=== PATIENT | female | born 1930 | race Two or more races ===

== ENCOUNTER 2017-03-01 09:43 | Inpatient (IN) | payer MEDICARE, MEDICAID ==
[~2017-03-01] VITALS: Ht 152.4 cm; Wt 50.9 kg
[2017-03-01] MEDS ORDERED: normal saline 1000ML IV soln IVB ONE (09:55)
[2017-03-01 10:35] LABS: BASOPHILS % (AUTO) 0.3 % (0-1); EOSINOPHILS # (AUTO) 0.1 X10'3 (0-0.9); EOSINOPHILS % (AUTO) 0.6 % (0-6); HEMOGLOBIN 12.9 g/dl (12.0-16.0); LYMPHOCYTES # (AUTO) 1.5 X10'3 (1.1-4.8); LYMPHOCYTES % (AUTO) 16.5 % (21-51); MEAN CORPUSCULAR HEMOGLOBIN 26.3 PG (27.0-31.0); MEAN CORPUSCULAR HGB CONC 33.2 % (33.0-36.5); MEAN CORPUSCULAR VOLUME 79.3 FL (78-98); MEAN PLATELET VOLUME 9.1 FL (7.4-10.4); MONOCYTES # (AUTO) 1.3 X10'3 (0-0.9); MONOCYTES % (AUTO) 13.6 % (2-12); NEUTROPHILS # (AUTO) 6.5 X10'3 (1.8-7.7); PLATELET COUNT 218 X10'3 (140-440); RED BLOOD COUNT 4.92 X10'6 (4.20-5.60); RED CELL DISTRIBUTION WIDTH 17.2 % (11.5-14.5); WHITE BLOOD COUNT 9.4 X10'3 (4.5-11.0)
[2017-03-01 10:46] LABS: PROTHROMBIN TIME 10.8 SECONDS (9.0-12.0)
[2017-03-01 11:06] LABS: ALANINE AMINOTRANSFERASE 17 U/L (12-78); ALBUMIN 3.2 G/DL (3.4-5.0); ALKALINE PHOSPHATASE 61 IU/L (46-116); ANION GAP 7 (8-16); ASPARTATE AMINO TRANSFERASE 23 U/L (10-37); BILIRUBIN,TOTAL 0.4 MG/DL (0.1-1.0); BLOOD UREA NITROGEN 15 MG/DL (7-18); BUN/CREATININE RATIO 10.7 (6.6-38.0); CALCIUM 9.5 MG/DL (8.5-10.1); CHLORIDE 103 MMOL/L (99-107); GLUCOSE 146 MG/DL (70-104); LIPASE 142 U/L (73-393); POTASSIUM 3.9 MMOL/L (3.5-5.1); SODIUM 137 MMOL/L (135-145); TOTAL CARBON DIOXIDE 26.7 MMOL/L (24-32); TOTAL PROTEIN 6.5 G/DL (6.4-8.2); eGFR 35 ML/MIN
[2017-03-01 11:28] LABS: CLARITY,URINE SLIGHTLY CLOUDY (Clear); COLOR,URINE YELLOW (Yellow); GLUCOSE, URINE 100 mg/dl (Neg); KETONES,URINE NEGATIVE (Neg); LEUKOCYTE ESTERASE ,URINE MODERATE (Neg); NITRITES, URINE POSITIVE (Neg); OCCULT BLOOD,URINE MODERATE (Neg); PH,URINE 5.5 (4.8-8.0); PROTEIN,URINE TRACE mg/dl (Neg); UROBILINOGEN,URINE 0.2 E.U/dL (0.2-1.0)
[2017-03-01 11:33] LABS: UA COLLECTION TYPE STRAIGHT CATH
[2017-03-01 11:35] LABS: BACTERIA,URINE 4+ /HPF (Neg); MUCUS STRANDS NONE SEEN /LPF (Neg); RBC,URINE 0-2 /HPF (0-2); SQUAMOUS EPITHELIAL CELL,UR NONE SEEN /LPF (FEW); WBC CLUMPS,URINE FEW /HPF (NEGATIVE); WBC,URINE 30-50 /HPF (0-4)
[2017-03-01] MEDS ORDERED: aspirin 81mg tab.chew PO ONE (11:35)
[2017-03-01] MEDS ORDERED: levoFLOXACIN-Levaquin 500mg/D5 100 ML IV ONE (11:50)
[2017-03-01] MEDS ORDERED: TEMA15CA PO (12:41)
[2017-03-01] MEDS ORDERED: LOSA100T28 PO (12:42)
[2017-03-01] MEDS ORDERED: LEVO25TA2 PO (12:43)
[2017-03-01] MEDS ORDERED: PRED10TA23 PO (12:43)
[2017-03-01] MEDS ORDERED: METF500T PO (12:44)
[2017-03-01] MEDS ORDERED: oseltamivir phos 75mg capsule PO ONE (13:15)
[2017-03-01] MEDS ORDERED: acetaminophen 325mg tablet PO PRN (13:30)
[2017-03-01] MEDS ORDERED: mag hydrox/Alum hydrox/simeth 30ml oral suspension PO PRN (13:30)
[2017-03-01] MEDS ORDERED: potassium Cl 20 mEq SR tablet PO PRN ×2 (13:30)
[2017-03-01] MEDS ORDERED: magnesium 2GM in 50ml NS 50 ML IV PRN (13:30)
[2017-03-01] MEDS ORDERED: magnesium 4gm in 100ml NS 100 ML IV PRN (13:30)
[2017-03-01] MEDS ORDERED: magnesium Cl slow-release 64mg tablet PO PRN (13:30)
[2017-03-01] MEDS ORDERED: bisacodyl 10mg suppository rectal RC PRN (13:30)
[2017-03-01] MEDS ORDERED: ondansetron/PF 4mg/2ml inj IV PRN (13:30)
[2017-03-01] MEDS ORDERED: magnesium hydroxide 30ml (MOM) UD suspension PO PRN (13:30)
[2017-03-01] MEDS ORDERED: potassium Cl 40MEQ/NS 500ml 500 ML IV PRN ×2 (13:30)
[2017-03-01] MEDS ORDERED: MESSAGE TO PHARMACY PO ONE (13:35)
[2017-03-01] MEDS ORDERED: dextrose 50%-water 50ml dispensing syringe IV PRN ×2 (13:35)
[2017-03-01] MEDS ORDERED: glucagon, human recombinant 1mg kit SUBCUT PRN (13:35)
[2017-03-01] MEDS ORDERED: nitroGLYCERIN 0.4mg SUBLingual tab SL PRN (13:35)
[2017-03-01] MEDS ORDERED: dextrose ORAL solution 15 GM/59 ML bottle PO PRN ×2 (13:35)
[2017-03-01] MEDS: cefTRIAXone 1g/NS 100ml IVPB 100 ML IV SCH (13:46)
[2017-03-01 13:57] LABS: HEMOGLOBIN A1C 6.6 % (4.5-6.2)
[2017-03-01] MEDS: potassium cl 20mEq in 1/2 NS 1,000 ML IV SCH (14:53)
[2017-03-01 17:20] VITALS: BP 127/75
[2017-03-01 19:00] VITALS: BP 150/83
[2017-03-01] MEDS: Insulin Detemir pen SQ SCH (21:00)
[2017-03-01] MEDS: guaiFENesin 200 MG/10 ML oral syrup UD cup PO PRN (21:15)
[2017-03-01] MEDS: docusate sod 100mg capsule PO SCH (21:51)
[2017-03-01] MEDS: oseltamivir 30mg capsule PO SCH (21:51)
[2017-03-01] MEDS: metoprolol tartrate 12.5mg (1/2 tablet) PO SCH (21:51)
[2017-03-01] MEDS: temazepam 15mg capsule PO SCH (21:51)
[2017-03-01] MEDS: albuterol 2.5 MG/3 ML nebule NEB PRN (22:04)
[2017-03-01 23:30] VITALS: BP 111/56
[2017-03-02] MEDS: potassium cl 20mEq in 1/2 NS 1,000 ML IV SCH ×3 (02:43→17:03)
[2017-03-02 04:00] VITALS: BP 106/57
[2017-03-02 05:11] LABS: BASOPHILS % (AUTO) 0.1 % (0-1); EOSINOPHILS # (AUTO) 0.1 X10'3 (0-0.9); EOSINOPHILS % (AUTO) 1.5 % (0-6); HEMATOCRIT 33.1 % (35.0-45.0); LYMPHOCYTES # (AUTO) 1.4 X10'3 (1.1-4.8); LYMPHOCYTES % (AUTO) 24.9 % (21-51); MEAN CORPUSCULAR HEMOGLOBIN 26.2 PG (27.0-31.0); MEAN CORPUSCULAR HGB CONC 33.3 % (33.0-36.5); MEAN CORPUSCULAR VOLUME 78.7 FL (78-98); MONOCYTES % (AUTO) 17.7 % (2-12); NEUTROPHILS # (AUTO) 3.1 X10'3 (1.8-7.7); NEUTROPHILS % (AUTO) 55.8 % (42-75); PLATELET COUNT 126 X10'3 (140-440); WHITE BLOOD COUNT 5.5 X10'3 (4.5-11.0)
[2017-03-02 05:47] LABS: ALBUMIN 2.3 G/DL (3.4-5.0); ANION GAP 8 (8-16); BLOOD UREA NITROGEN 14 MG/DL (7-18); BUN/CREATININE RATIO 8.7 (6.6-38.0); CALCIUM 7.9 MG/DL (8.5-10.1); CHLORIDE 107 MMOL/L (99-107); CREATININE 1.61 MG/DL (0.40-0.90); GLUCOSE 98 MG/DL (70-104); MAGNESIUM 1.5 MG/DL (1.5-2.4); POTASSIUM 4.4 MMOL/L (3.5-5.1); SODIUM 140 MMOL/L (135-145); TOTAL CARBON DIOXIDE 24.8 MMOL/L (24-32); eGFR 30 ML/MIN
[2017-03-02 07:13] VITALS: BP 136/65
[2017-03-02] MEDS: K and/or MAG REPLACEMENT MC SCH (08:00)
[2017-03-02] MEDS: metoprolol tartrate 12.5mg (1/2 tablet) PO SCH ×2 (08:00→21:48)
[2017-03-02] MEDS ORDERED: non-formulary drug (Losartan Potassium 1 TAB) PO SCH (08:00)
[2017-03-02] MEDS ORDERED: enoxaparin 40mg/0.4ml syringe SUBCUT SCH (08:00)
[2017-03-02] MEDS ORDERED: PREDNISONE PO SCH (08:00)
[2017-03-02] MEDS: cefTRIAXone 1g/NS 100ml IVPB 100 ML IV SCH (08:10)
[2017-03-02] MEDS: aspirin 81mg tablet.DR PO SCH (08:12)
[2017-03-02] MEDS: docusate sod 100mg capsule PO SCH ×2 (08:12→21:48)
[2017-03-02] MEDS: losartan 50mg tablet PO SCH (08:12)
[2017-03-02] MEDS: oseltamivir 30mg capsule PO SCH ×2 (08:13→21:48)
[2017-03-02] MEDS: levoTHYROXINE 25mcg tablet PO SCH (08:13)
[2017-03-02] MEDS: prednisone 10mg tablet PO SCH (08:13)
[2017-03-02] MEDS: albuterol 2.5 MG/3 ML nebule NEB PRN ×2 (09:06→20:58)
[2017-03-02 11:43] VITALS: BP 135/76
[2017-03-02] MEDS: NUT.TX.GLUC.INTOLER,LAC-FR,REG (BOOST GLUCOSE CONTROL) 237 ML PO SCH (18:00)
[2017-03-02 19:00] VITALS: BP 174/87
[2017-03-02] MEDS: guaiFENesin 200 MG/10 ML oral syrup UD cup PO PRN (21:49)
[2017-03-02] MEDS: Insulin Detemir pen SQ SCH (22:05)
[2017-03-02] MEDS: temazepam 15mg capsule PO SCH (23:16)
[2017-03-02 23:30] VITALS: BP 149/86
[2017-03-03 05:18] LABS: BASOPHILS % (AUTO) 0.8 % (0-1); EOSINOPHILS # (AUTO) 0.1 X10'3 (0-0.9); EOSINOPHILS % (AUTO) 1.6 % (0-6); HEMATOCRIT 33.9 % (35.0-45.0); HEMOGLOBIN 11.4 g/dl (12.0-16.0); LYMPHOCYTES # (AUTO) 1.3 X10'3 (1.1-4.8); LYMPHOCYTES % (AUTO) 30.2 % (21-51); MEAN CORPUSCULAR HEMOGLOBIN 26.2 PG (27.0-31.0); MEAN CORPUSCULAR HGB CONC 33.6 % (33.0-36.5); MONOCYTES # (AUTO) 0.7 X10'3 (0-0.9); MONOCYTES % (AUTO) 17.8 % (2-12); NEUTROPHILS # (AUTO) 2.1 X10'3 (1.8-7.7); NEUTROPHILS % (AUTO) 49.6 % (42-75); PLATELET COUNT 168 X10'3 (140-440); RED BLOOD COUNT 4.34 X10'6 (4.20-5.60); RED CELL DISTRIBUTION WIDTH 17.5 % (11.5-14.5); WHITE BLOOD COUNT 4.2 X10'3 (4.5-11.0)
[2017-03-03 05:37] LABS: ALBUMIN 2.5 G/DL (3.4-5.0); ANION GAP 9 (8-16); BLOOD UREA NITROGEN 12 MG/DL (7-18); BUN/CREATININE RATIO 9.8 (6.6-38.0); CALCIUM 8.2 MG/DL (8.5-10.1); CHLORIDE 110 MMOL/L (99-107); CREATININE 1.22 MG/DL (0.40-0.90); GLUCOSE 103 MG/DL (70-104); MAGNESIUM 1.4 MG/DL (1.5-2.4); POTASSIUM 4.2 MMOL/L (3.5-5.1); SODIUM 143 MMOL/L (135-145); TOTAL CARBON DIOXIDE 24.5 MMOL/L (24-32); eGFR 42 ML/MIN
[2017-03-03 07:47] VITALS: BP 177/77
[2017-03-03] MEDS: K and/or MAG REPLACEMENT MC SCH (08:00)
[2017-03-03] MEDS: cefTRIAXone 1g/NS 100ml IVPB 100 ML IV SCH (08:03)
[2017-03-03] MEDS: docusate sod 100mg capsule PO SCH ×2 (08:04→21:02)
[2017-03-03] MEDS: NUT.TX.GLUC.INTOLER,LAC-FR,REG (BOOST GLUCOSE CONTROL) 237 ML PO SCH ×3 (08:04→18:38)
[2017-03-03] MEDS: losartan 50mg tablet PO SCH (08:05)
[2017-03-03] MEDS: aspirin 81mg tablet.DR PO SCH (08:05)
[2017-03-03] MEDS: metoprolol tartrate 12.5mg (1/2 tablet) PO SCH (08:06)
[2017-03-03] MEDS: levoTHYROXINE 25mcg tablet PO SCH (08:07)
[2017-03-03] MEDS: prednisone 10mg tablet PO SCH (08:07)
[2017-03-03] MEDS: oseltamivir 30mg capsule PO SCH ×2 (08:08→21:02)
[2017-03-03] MEDS: albuterol 2.5 MG/3 ML nebule NEB PRN ×3 (10:10→22:05)
[2017-03-03 11:30] VITALS: BP_SYST 155; BP_SYST 164; BP_DIAS 112; BP_DIAS 91
[2017-03-03] MEDS: potassium cl 20mEq in 1/2 NS 1,000 ML IV SCH ×2 (15:26→21:02)
[2017-03-03] MEDS: insulin Lispro (HumaLOG) vial - multi-dose SQ SCH (19:19)
[2017-03-03 19:20] VITALS: BP 149/68
[2017-03-03] MEDS: Insulin Detemir pen SQ SCH (20:59)
[2017-03-03] MEDS: temazepam 15mg capsule PO SCH (21:02)
[2017-03-03] MEDS: metoprolol tartrate 25mg tablet PO SCH (21:03)
[2017-03-03 23:45] VITALS: BP 121/51
[2017-03-04] MEDS: cephalexin 500mg capsule PO SCH ×4 (00:07→23:50)
[2017-03-04] MEDS: albuterol 2.5 MG/3 ML nebule NEB PRN ×4 (03:28→19:50)
[2017-03-04 05:54] LABS: BASOPHILS % (AUTO) 0.1 % (0-1); EOSINOPHILS # (AUTO) 0.1 X10'3 (0-0.9); EOSINOPHILS % (AUTO) 3.4 % (0-6); HEMATOCRIT 30.4 % (35.0-45.0); HEMOGLOBIN 10.2 g/dl (12.0-16.0); LYMPHOCYTES # (AUTO) 1.8 X10'3 (1.1-4.8); LYMPHOCYTES % (AUTO) 41.4 % (21-51); MEAN CORPUSCULAR HEMOGLOBIN 26.3 PG (27.0-31.0); MEAN CORPUSCULAR HGB CONC 33.6 % (33.0-36.5); MEAN CORPUSCULAR VOLUME 78.1 FL (78-98); MEAN PLATELET VOLUME 9.1 FL (7.4-10.4); MONOCYTES # (AUTO) 0.7 X10'3 (0-0.9); MONOCYTES % (AUTO) 15.2 % (2-12); NEUTROPHILS # (AUTO) 1.8 X10'3 (1.8-7.7); NEUTROPHILS % (AUTO) 39.9 % (42-75); PLATELET COUNT 143 X10'3 (140-440); RED BLOOD COUNT 3.89 X10'6 (4.20-5.60); RED CELL DISTRIBUTION WIDTH 17.5 % (11.5-14.5); WHITE BLOOD COUNT 4.4 X10'3 (4.5-11.0)
[2017-03-04 06:18] LABS: ALBUMIN 2.3 G/DL (3.4-5.0); ANION GAP 7 (8-16); BLOOD UREA NITROGEN 17 MG/DL (7-18); BUN/CREATININE RATIO 14.4 (6.6-38.0); CALCIUM 8.3 MG/DL (8.5-10.1); CHLORIDE 109 MMOL/L (99-107); CREATININE 1.18 MG/DL (0.40-0.90); GLUCOSE 86 MG/DL (70-104); POTASSIUM 4.3 MMOL/L (3.5-5.1); SODIUM 139 MMOL/L (135-145); eGFR 43 ML/MIN
[2017-03-04 06:33] LABS: MAGNESIUM 4.2 MG/DL (1.5-2.4)
[2017-03-04 06:36] LABS: TOTAL CELLS COUNTED 100
[2017-03-04 06:37] LABS: ANISOCYTOSIS 1+; BURR CELLS 2+; ELLIPTOCYTES 1+; PLATELET ESTIMATE NORMAL; SCHISTOCYTES FEW
[2017-03-04 08:00] VITALS: BP 134/59
[2017-03-04] MEDS: NUT.TX.GLUC.INTOLER,LAC-FR,REG (BOOST GLUCOSE CONTROL) 237 ML PO SCH ×3 (08:00→18:00)
[2017-03-04] MEDS: K and/or MAG REPLACEMENT MC SCH (08:00)
[2017-03-04] MEDS: docusate sod 100mg capsule PO SCH ×2 (08:38→21:09)
[2017-03-04] MEDS: prednisone 10mg tablet PO SCH (08:38)
[2017-03-04] MEDS: metoprolol tartrate 25mg tablet PO SCH ×2 (08:38→21:09)
[2017-03-04] MEDS: aspirin 81mg tablet.DR PO SCH (08:38)
[2017-03-04] MEDS: losartan 50mg tablet PO SCH (08:38)
[2017-03-04] MEDS: oseltamivir 30mg capsule PO SCH ×2 (08:38→21:09)
[2017-03-04] MEDS: levoTHYROXINE 25mcg tablet PO SCH (08:38)
[2017-03-04 11:00] VITALS: BP 134/68
[2017-03-04] MEDS: potassium cl 20mEq in 1/2 NS 1,000 ML IV SCH (13:47)
[2017-03-04] MEDS: normal saline 1000ml 1,000 ML IV SCH ×2 (16:31→23:50)
[2017-03-04 18:00] VITALS: BP 155/87
[2017-03-04] MEDS: insulin Lispro (HumaLOG) vial - multi-dose SQ SCH (19:14)
[2017-03-04] MEDS: Insulin Detemir pen SQ SCH (21:00)
[2017-03-04] MEDS: temazepam 15mg capsule PO SCH (21:09)
[2017-03-04] MEDS: guaiFENesin 200 MG/10 ML oral syrup UD cup PO PRN (21:09)
[2017-03-05] MEDS: HYDROcodone/acetaminophen 5mg/325mg tablet PO PRN ×2 (01:04→11:27)
[2017-03-05] MEDS: albuterol 2.5 MG/3 ML nebule NEB PRN ×2 (01:27→07:51)
[2017-03-05 07:11] LABS: BASOPHILS % (AUTO) 0.8 % (0-1); EOSINOPHILS # (AUTO) 0.1 X10'3 (0-0.9); EOSINOPHILS % (AUTO) 2.7 % (0-6); HEMOGLOBIN 10.1 g/dl (12.0-16.0); LYMPHOCYTES # (AUTO) 1.6 X10'3 (1.1-4.8); LYMPHOCYTES % (AUTO) 38.1 % (21-51); MEAN CORPUSCULAR HEMOGLOBIN 26.2 PG (27.0-31.0); MEAN CORPUSCULAR HGB CONC 33.7 % (33.0-36.5); MEAN CORPUSCULAR VOLUME 77.7 FL (78-98); MEAN PLATELET VOLUME 8.9 FL (7.4-10.4); MONOCYTES # (AUTO) 0.7 X10'3 (0-0.9); MONOCYTES % (AUTO) 15.2 % (2-12); NEUTROPHILS # (AUTO) 1.9 X10'3 (1.8-7.7); NEUTROPHILS % (AUTO) 43.2 % (42-75); PLATELET COUNT 159 X10'3 (140-440); RED BLOOD COUNT 3.85 X10'6 (4.20-5.60); RED CELL DISTRIBUTION WIDTH 17.5 % (11.5-14.5); WHITE BLOOD COUNT 4.3 X10'3 (4.5-11.0)
[2017-03-05 07:17] LABS: ALBUMIN 2.3 G/DL (3.4-5.0); ANION GAP 7 (8-16); BLOOD UREA NITROGEN 17 MG/DL (7-18); BUN/CREATININE RATIO 14.8 (6.6-38.0); CALCIUM 7.5 MG/DL (8.5-10.1); CHLORIDE 113 MMOL/L (99-107); CREATININE 1.15 MG/DL (0.40-0.90); GLUCOSE 95 MG/DL (70-104); MAGNESIUM 2.5 MG/DL (1.5-2.4); POTASSIUM 4.1 MMOL/L (3.5-5.1); SODIUM 143 MMOL/L (135-145); TOTAL CARBON DIOXIDE 22.7 MMOL/L (24-32); eGFR 45 ML/MIN
[2017-03-05 08:00] VITALS: BP 127/74
[2017-03-05] MEDS: K and/or MAG REPLACEMENT MC SCH (08:00)
[2017-03-05] MEDS: oseltamivir 30mg capsule PO SCH ×2 (08:32→17:07)
[2017-03-05] MEDS: aspirin 81mg tablet.DR PO SCH (08:33)
[2017-03-05] MEDS: cephalexin 500mg capsule PO SCH ×2 (08:33→17:07)
[2017-03-05] MEDS: metoprolol tartrate 25mg tablet PO SCH (08:33)
[2017-03-05] MEDS: losartan 50mg tablet PO SCH (08:33)
[2017-03-05] MEDS: docusate sod 100mg capsule PO SCH (08:33)
[2017-03-05] MEDS: levoTHYROXINE 25mcg tablet PO SCH (08:33)
[2017-03-05] MEDS: prednisone 10mg tablet PO SCH (08:34)
[2017-03-05] MEDS: NUT.TX.GLUC.INTOLER,LAC-FR,REG (BOOST GLUCOSE CONTROL) 237 ML PO SCH ×2 (08:36→13:07)
[2017-03-05] MEDS: guaiFENesin 200 MG/10 ML oral syrup UD cup PO PRN (08:57)
[2017-03-05] MEDS: insulin Lispro (HumaLOG) vial - multi-dose SQ SCH (08:59)
[2017-03-05 11:00] VITALS: BP 149/80
[2017-03-05] MEDS: normal saline 1000ml 1,000 ML IV SCH (12:14)
[2017-03-05] MEDS ORDERED: CEPH500C5 PO (15:37)
[2017-03-05] MEDS ORDERED: GUAI100L97 PO (15:37)
[2017-03-05] MEDS ORDERED: ALB0.5UD IH (16:05)
[2017-03-05] MEDS ORDERED: IPRA3AMP9 IH (16:12)
[2017-03-06] MEDS ORDERED: LACTOBACILLUS RHAMNOSUS GG 15 billion unit sprinkle caps PO SCH (07:30)
== END 2017-03-05 17:36 | disposition home health service (06) | DRG 872 ==
LOC: ER 09:43 → EDBD 09:43 → ED HOLD 13:26 → EDBEDREQ 16:34 → SUR 3N 17:30
PROVIDERS: ADMIT Internal Medicine; ATTEND Internal Medicine
DX: A41.9 Sepsis, unspecified organism (principal); E44.0 Moderate protein-calorie malnutrition; D69.6 Thrombocytopenia, unspecified; N39.0 Urinary tract infection, site not specified; E83.41 Hypermagnesemia; B96.20 Unspecified Escherichia coli [E. coli] as the cause of diseases classified elsewhere; E03.9 Hypothyroidism, unspecified; E11.9 Type 2 diabetes mellitus without complications; D64.9 Anemia, unspecified; F03.90 Unspecified dementia, unspecified severity, without behavioral disturbance, psychotic disturbance, mood disturbance, and anxiety; N28.9 Disorder of kidney and ureter, unspecified; J10.1 Influenza due to other identified influenza virus with other respiratory manifestations; J45.909 Unspecified asthma, uncomplicated; I10 Essential (primary) hypertension; Z66 Do not resuscitate; Z68.21 Body mass index [BMI] 21.0-21.9, adult
CPT/HCPCS: 36415; 71046; 80048; 80053; 81001; 82948; 83036; 83605; 83690; 83735; 84443; 84484; 85025; 85610; 87040; 87070; 87077; 87088; 87186; 87502; 87503; 93005; 93306; 94640; 94667; 94760; 96361; 96365; 97116; 97162; 97530; 99285; A4353; J0696; J1650; J1956; J3475; J7030; J7512

== ENCOUNTER 2017-03-21 06:51 | Emergency (ER) | payer MEDICARE, MEDICAID ==
[~2017-03-21] VITALS: Ht 162.6 cm; Wt 50.0 kg
[~2017-03-21 06:51] MED LIST: ALB0.5UD IH; CEPH500C5 PO; GUAI100L97 PO; IPRA3AMP9 IH; LEVO25TA2 PO; LOSA100T28 PO; METF500T PO; TEMA15CA PO
[2017-03-21] MEDS ORDERED: dextrose 50%-water 50ml dispensing syringe IV ONE (07:00)
[2017-03-21 10:27] VITALS: BP 173/72
== END 2017-03-21 10:29 | disposition home or self-care (01) ==
LOC: ER 06:53
DX: E11.649 Type 2 diabetes mellitus with hypoglycemia without coma (principal); I10 Essential (primary) hypertension; J45.909 Unspecified asthma, uncomplicated; Z79.84 Long term (current) use of oral hypoglycemic drugs; Z79.899 Other long term (current) drug therapy
CPT/HCPCS: 82948; 96374; 99284

== ENCOUNTER 2017-08-18 20:43 | Inpatient (IN) | payer MEDICARE, MEDICAID ==
[~2017-08-18] VITALS: Ht 154.9 cm; Wt 59.1 kg
[~2017-08-18 20:43] MED LIST changes: -ALB0.5UD IH
[2017-08-18 21:30] LABS: BASOPHILS % (AUTO) 0.3 % (0-1); EOSINOPHILS # (AUTO) 0.1 X10'3 (0-0.9); EOSINOPHILS % (AUTO) 1.5 % (0-6); HEMATOCRIT 34.7 % (35.0-45.0); HEMOGLOBIN 11.5 g/dl (12.0-16.0); LYMPHOCYTES # (AUTO) 0.5 X10'3 (1.1-4.8); LYMPHOCYTES % (AUTO) 6.7 % (21-51); MEAN CORPUSCULAR HEMOGLOBIN 25.2 PG (27.0-31.0); MEAN CORPUSCULAR HGB CONC 33.2 % (33.0-36.5); MEAN PLATELET VOLUME 9.2 FL (7.4-10.4); MONOCYTES # (AUTO) 0.1 X10'3 (0-0.9); MONOCYTES % (AUTO) 1.8 % (2-12); NEUTROPHILS # (AUTO) 7.3 X10'3 (1.8-7.7); NEUTROPHILS % (AUTO) 89.7 % (42-75); PLATELET COUNT 235 X10'3 (140-440); RED BLOOD COUNT 4.56 X10'6 (4.20-5.60); RED CELL DISTRIBUTION WIDTH 16.8 % (11.5-14.5); WHITE BLOOD COUNT 8.2 X10'3 (4.5-11.0)
[2017-08-18 21:40] LABS: PARTIAL THROMBOPLASTIN TIME 23 SECONDS (22-32)
[2017-08-18 21:44] LABS: ALANINE AMINOTRANSFERASE 20 U/L (12-78); ALBUMIN 2.9 G/DL (3.4-5.0); ALBUMIN/GLOBULIN RATIO 0.8 (1.1-1.5); ALKALINE PHOSPHATASE 89 IU/L (46-116); ANION GAP 10 (8-16); ASPARTATE AMINO TRANSFERASE 16 U/L (10-37); BILIRUBIN,TOTAL 0.3 MG/DL (0.1-1.0); BLOOD UREA NITROGEN 32 MG/DL (7-18); BUN/CREATININE RATIO 20.4 (6.6-38.0); CALCIUM 8.7 MG/DL (8.5-10.1); CHLORIDE 106 MMOL/L (99-107); CREATININE 1.57 MG/DL (0.40-0.90); GLUCOSE 352 MG/DL (70-104); SODIUM 139 MMOL/L (135-145); TOTAL CARBON DIOXIDE 22.6 MMOL/L (24-32); TOTAL PROTEIN 6.5 G/DL (6.4-8.2); eGFR 31 ML/MIN
[2017-08-18 21:47] LABS: TROPONIN I < 0.04 NG/ML (0.0-0.05)
[2017-08-18] MEDS ORDERED: hydrALAZINE 20mg/ml inj. IV ONE (22:05)
[2017-08-18] MEDS ORDERED: aspirin 325mg tablet PO ONE (22:10)
[2017-08-18] MEDS ORDERED: LORA1TAB PO (22:20)
[2017-08-18] MEDS ORDERED: HYDR-3964 PO (22:20)
[2017-08-18] MEDS ORDERED: PRED10TA PO (22:20)
[2017-08-18] MEDS ORDERED: NATE60TA PO (22:20)
[2017-08-18] MEDS ORDERED: ALB0.5UD IH (22:20)
[2017-08-18] MEDS ORDERED: IPRA3AMP IH (22:20)
[2017-08-18] MEDS ORDERED: ondansetron/PF 4mg/2ml inj IV PRN (23:35)
[2017-08-18] MEDS ORDERED: mag hydrox/Alum hydrox/simeth 30ml oral suspension PO PRN (23:35)
[2017-08-18] MEDS ORDERED: magnesium hydroxide 30ml (MOM) UD suspension PO PRN (23:35)
[2017-08-18] MEDS ORDERED: acetaminophen 325mg tablet PO PRN (23:35)
[2017-08-18] MEDS ORDERED: dextrose ORAL solution 15 GM/59 ML bottle PO PRN ×2 (23:40)
[2017-08-18] MEDS ORDERED: glucagon, human recombinant 1mg kit SUBCUT PRN (23:40)
[2017-08-18] MEDS ORDERED: MESSAGE TO PHARMACY PO ONE (23:40)
[2017-08-18] MEDS ORDERED: dextrose 50%-water 50ml dispensing syringe IV PRN ×2 (23:40)
[2017-08-18] MEDS ORDERED: insulin Lispro (HumaLOG) vial - multi-dose SQ SCH (23:40)
[2017-08-18 23:55] LABS: HEMOGLOBIN A1C 7.7 % (4.5-6.2)
[2017-08-19] MEDS ORDERED: albuterol 2.5 MG/3 ML nebule NEB PRN
[2017-08-19 00:45] VITALS: BP 130/81
[2017-08-19] MEDS: ipratropium/albuterol 3ml nebule IH SCH ×4 (02:13→20:30)
[2017-08-19 06:00] VITALS: BP 159/56
[2017-08-19 06:12] LABS: BASOPHILS % (AUTO) 0.4 % (0-1); EOSINOPHILS # (AUTO) 0.1 X10'3 (0-0.9); EOSINOPHILS % (AUTO) 1.1 % (0-6); HEMATOCRIT 31.3 % (35.0-45.0); HEMOGLOBIN 10.4 g/dl (12.0-16.0); LYMPHOCYTES # (AUTO) 1.4 X10'3 (1.1-4.8); LYMPHOCYTES % (AUTO) 18.6 % (21-51); MEAN CORPUSCULAR HGB CONC 33.3 % (33.0-36.5); MEAN CORPUSCULAR VOLUME 75.1 FL (78-98); MEAN PLATELET VOLUME 9.1 FL (7.4-10.4); MONOCYTES # (AUTO) 0.7 X10'3 (0-0.9); MONOCYTES % (AUTO) 9.7 % (2-12); NEUTROPHILS # (AUTO) 5.3 X10'3 (1.8-7.7); NEUTROPHILS % (AUTO) 70.2 % (42-75); PLATELET COUNT 206 X10'3 (140-440); RED BLOOD COUNT 4.18 X10'6 (4.20-5.60); RED CELL DISTRIBUTION WIDTH 16.8 % (11.5-14.5); WHITE BLOOD COUNT 7.5 X10'3 (4.5-11.0)
[2017-08-19 06:32] LABS: ALANINE AMINOTRANSFERASE 18 U/L (12-78); ALBUMIN 2.7 G/DL (3.4-5.0); ALBUMIN/GLOBULIN RATIO 0.9 (1.1-1.5); ALKALINE PHOSPHATASE 77 IU/L (46-116); ANION GAP 9 (8-16); ASPARTATE AMINO TRANSFERASE 15 U/L (10-37); BILIRUBIN,TOTAL 0.2 MG/DL (0.1-1.0); BLOOD UREA NITROGEN 30 MG/DL (7-18); CALCIUM 8.9 MG/DL (8.5-10.1); CHLORIDE 109 MMOL/L (99-107); CHOL/HDL RATIO 2.5 (0.00-4.99); CHOLESTEROL 187 MG/DL (0-200); CREATININE 1.43 MG/DL (0.40-0.90); GLUCOSE 134 MG/DL (70-104); HDL CHOLESTEROL 75 MG/DL (35-60); LDL CHOLESTEROL 93 MG/DL (50-100); POTASSIUM 4.1 MMOL/L (3.5-5.1); SODIUM 142 MMOL/L (135-145); TOTAL CARBON DIOXIDE 24.5 MMOL/L (24-32); TOTAL PROTEIN 5.8 G/DL (6.4-8.2); TRIGLYCERIDES 123 MG/DL (20-135); eGFR 35 ML/MIN
[2017-08-19] MEDS: heparin, porcine 5000 units/ml vial SQ SCH ×2 (07:49→22:08)
[2017-08-19] MEDS: levoTHYROXINE 25mcg tablet PO SCH (07:49)
[2017-08-19] MEDS ORDERED: losartan 50mg tablet PO SCH (08:00)
[2017-08-19 10:00] VITALS: BP 103/67
[2017-08-19] MEDS ORDERED: LORazepam 2 mg/ml vial IV ONE (12:40)
[2017-08-19 14:00] VITALS: BP 180/82
[2017-08-19] MEDS: HYDROcodone/acetaminophen 5mg/325mg tablet PO PRN (14:24)
[2017-08-19] MEDS: normal saline 1000ml 1,000 ML IV SCH (16:24)
[2017-08-19] MEDS: lisinopril 10 MG tablet PO SCH (16:31)
[2017-08-19 18:00] VITALS: BP 157/67
[2017-08-19] MEDS: insulin glargine (Lantus) pen - multi-dose SQ SCH (21:00)
[2017-08-19 22:00] VITALS: BP 117/47
[2017-08-19] MEDS: LORazepam 1 MG tablet PO SCH (22:08)
[2017-08-20] MEDS: ipratropium/albuterol 3ml nebule IH SCH ×4 (03:12→19:00)
[2017-08-20] MEDS ORDERED: LORazepam 2 mg/ml vial IV ONE (03:30)
[2017-08-20] MEDS ORDERED: morphine 2 MG/ML inj. syringe IV ONE (04:35)
[2017-08-20 06:00] VITALS: BP 167/71
[2017-08-20] MEDS: normal saline 1000ml 1,000 ML IV SCH ×2 (06:23→20:41)
[2017-08-20 06:32] LABS: BASOPHILS % (AUTO) 0.4 % (0-1); EOSINOPHILS # (AUTO) 0.5 X10'3 (0-0.9); HEMATOCRIT 31.9 % (35.0-45.0); HEMOGLOBIN 10.5 g/dl (12.0-16.0); LYMPHOCYTES # (AUTO) 1.6 X10'3 (1.1-4.8); LYMPHOCYTES % (AUTO) 15.3 % (21-51); MEAN CORPUSCULAR VOLUME 75.8 FL (78-98); MEAN PLATELET VOLUME 8.9 FL (7.4-10.4); MONOCYTES # (AUTO) 0.9 X10'3 (0-0.9); MONOCYTES % (AUTO) 8.5 % (2-12); NEUTROPHILS # (AUTO) 7.6 X10'3 (1.8-7.7); NEUTROPHILS % (AUTO) 70.8 % (42-75); PLATELET COUNT 217 X10'3 (140-440); RED BLOOD COUNT 4.21 X10'6 (4.20-5.60); RED CELL DISTRIBUTION WIDTH 17.4 % (11.5-14.5); WHITE BLOOD COUNT 10.7 X10'3 (4.5-11.0)
[2017-08-20 06:54] LABS: ALANINE AMINOTRANSFERASE 18 U/L (12-78); ALBUMIN 2.6 G/DL (3.4-5.0); ALBUMIN/GLOBULIN RATIO 0.8 (1.1-1.5); ALKALINE PHOSPHATASE 74 IU/L (46-116); ANION GAP 8 (8-16); ASPARTATE AMINO TRANSFERASE 14 U/L (10-37); BILIRUBIN,TOTAL 0.3 MG/DL (0.1-1.0); BLOOD UREA NITROGEN 27 MG/DL (7-18); BUN/CREATININE RATIO 18.2 (6.6-38.0); CALCIUM 8.7 MG/DL (8.5-10.1); CHLORIDE 108 MMOL/L (99-107); CREATININE 1.48 MG/DL (0.40-0.90); GLUCOSE 112 MG/DL (70-104); SODIUM 143 MMOL/L (135-145); TOTAL CARBON DIOXIDE 26.9 MMOL/L (24-32); TOTAL PROTEIN 5.7 G/DL (6.4-8.2); eGFR 33 ML/MIN
[2017-08-20] MEDS: prazosin 1mg capsule PO SCH ×2 (08:00→20:25)
[2017-08-20] MEDS: atorvastatin 20mg tablet PO SCH (09:51)
[2017-08-20] MEDS: levoTHYROXINE 25mcg tablet PO SCH (09:52)
[2017-08-20] MEDS: lisinopril 10 MG tablet PO SCH (09:52)
[2017-08-20] MEDS: aspirin 325mg tablet PO SCH (09:52)
[2017-08-20 10:00] VITALS: BP 111/60
[2017-08-20] MEDS: heparin, porcine 5000 units/ml vial SQ SCH ×2 (10:05→20:25)
[2017-08-20] MEDS: HYDROcodone/acetaminophen 5mg/325mg tablet PO PRN (13:28)
[2017-08-20 18:00] VITALS: BP 129/91
[2017-08-20] MEDS: LORazepam 1 MG tablet PO SCH (20:25)
[2017-08-20] MEDS: insulin glargine (Lantus) pen - multi-dose SQ SCH (21:00)
[2017-08-20 22:00] VITALS: BP 126/34
[2017-08-21] MEDS: ipratropium/albuterol 3ml nebule IH SCH ×2 (02:00→08:15)
[2017-08-21] MEDS ORDERED: LORazepam 2 mg/ml vial IV ONE (03:55)
[2017-08-21 06:00] VITALS: BP 88/75
[2017-08-21 06:37] LABS: BASOPHILS % (AUTO) 0.4 % (0-1); EOSINOPHILS # (AUTO) 0.6 X10'3 (0-0.9); EOSINOPHILS % (AUTO) 6.5 % (0-6); HEMATOCRIT 32.1 % (35.0-45.0); HEMOGLOBIN 10.7 g/dl (12.0-16.0); LYMPHOCYTES # (AUTO) 1.2 X10'3 (1.1-4.8); MEAN CORPUSCULAR HEMOGLOBIN 25.3 PG (27.0-31.0); MEAN CORPUSCULAR HGB CONC 33.2 % (33.0-36.5); MEAN CORPUSCULAR VOLUME 76.1 FL (78-98); MEAN PLATELET VOLUME 9.3 FL (7.4-10.4); MONOCYTES # (AUTO) 0.9 X10'3 (0-0.9); NEUTROPHILS # (AUTO) 6.3 X10'3 (1.8-7.7); NEUTROPHILS % (AUTO) 70.1 % (42-75); PLATELET COUNT 205 X10'3 (140-440); RED BLOOD COUNT 4.21 X10'6 (4.20-5.60); RED CELL DISTRIBUTION WIDTH 17.5 % (11.5-14.5)
[2017-08-21 06:53] LABS: % IRON SATURATION 15 % (11-46); IRON 49 UG/DL (49-151); TOTAL IRON BINDING CAPACITY 321 UG/DL (259-388)
[2017-08-21 06:58] LABS: ALANINE AMINOTRANSFERASE 21 U/L (12-78); ALBUMIN 2.7 G/DL (3.4-5.0); ALBUMIN/GLOBULIN RATIO 0.8 (1.1-1.5); ALKALINE PHOSPHATASE 84 IU/L (46-116); ANION GAP 7 (8-16); ASPARTATE AMINO TRANSFERASE 18 U/L (10-37); BILIRUBIN,TOTAL 0.5 MG/DL (0.1-1.0); BLOOD UREA NITROGEN 27 MG/DL (7-18); BUN/CREATININE RATIO 16.6 (6.6-38.0); CALCIUM 8.6 MG/DL (8.5-10.1); CHLORIDE 107 MMOL/L (99-107); CREATININE 1.63 MG/DL (0.40-0.90); GLUCOSE 144 MG/DL (70-104); POTASSIUM 4.4 MMOL/L (3.5-5.1); SODIUM 141 MMOL/L (135-145); TOTAL CARBON DIOXIDE 26.7 MMOL/L (24-32); eGFR 30 ML/MIN
[2017-08-21] MEDS: prazosin 1mg capsule PO SCH (08:00)
[2017-08-21] MEDS: lisinopril 10 MG tablet PO SCH (08:00)
[2017-08-21 10:00] VITALS: BP 148/54
[2017-08-21] MEDS: normal saline 1000ml 1,000 ML IV SCH (10:59)
[2017-08-21] MEDS: levoTHYROXINE 25mcg tablet PO SCH (11:04)
[2017-08-21] MEDS: heparin, porcine 5000 units/ml vial SQ SCH (11:04)
[2017-08-21] MEDS: atorvastatin 20mg tablet PO SCH (11:04)
[2017-08-21] MEDS: HYDROcodone/acetaminophen 5mg/325mg tablet PO PRN (11:04)
[2017-08-21] MEDS: aspirin 325mg tablet PO SCH (11:04)
[2017-08-21] MEDS ORDERED: ATOR20TA66 PO (11:54)
[2017-08-21] MEDS ORDERED: LISI10TA4 PO (11:54)
[2017-08-21] MEDS ORDERED: PRED10TA PO (11:54)
== END 2017-08-21 14:03 | disposition home health service (06) | DRG 65 ==
LOC: ER 20:44 → ED HOLD 23:33 → ORTHO 4S 08-19 00:35
PROVIDERS: ADMIT Internal Medicine; ATTEND Internal Medicine
DX: I63.9 Cerebral infarction, unspecified (principal); N17.9 Acute kidney failure, unspecified; E11.22 Type 2 diabetes mellitus with diabetic chronic kidney disease; E11.65 Type 2 diabetes mellitus with hyperglycemia; F03.90 Unspecified dementia, unspecified severity, without behavioral disturbance, psychotic disturbance, mood disturbance, and anxiety; I65.22 Occlusion and stenosis of left carotid artery; G83.21 Monoplegia of upper limb affecting right dominant side; I12.9 Hypertensive chronic kidney disease with stage 1 through stage 4 chronic kidney disease, or unspecified chronic kidney disease; N18.9 Chronic kidney disease, unspecified; D50.9 Iron deficiency anemia, unspecified; E03.9 Hypothyroidism, unspecified; J44.9 Chronic obstructive pulmonary disease, unspecified; R47.81 Slurred speech; Z79.899 Other long term (current) drug therapy; Z79.84 Long term (current) use of oral hypoglycemic drugs; Z79.82 Long term (current) use of aspirin
CPT/HCPCS: 36415; 70450; 70544; 70551; 71045; 80053; 80061; 82948; 83036; 83540; 83550; 83880; 84443; 84484; 85025; 85610; 85730; 87070; 93005; 93306; 93880; 94640; 94760; 97110; 97116; 97162; 97530; 99285; A4620; J0360; J1644; J1815; J2060; J2270; J7030

== ENCOUNTER 2017-09-10 06:12 | Inpatient (IN) | payer MEDICARE, MEDICAID ==
[~2017-09-10] VITALS: Ht 154.9 cm; Wt 50.0 kg
[~2017-09-10 06:12] MED LIST changes: +ALB0.5UD IH; +ATOR20TA66 PO; -CEPH500C5 PO; -GUAI100L97 PO; +HYDR-3964 PO; +IPRA3AMP IH; -IPRA3AMP9 IH; +LISI10TA4 PO; +LORA1TAB PO; -LOSA100T28 PO; -METF500T PO; +NATE60TA PO; +PRED10TA PO; -TEMA15CA PO
[2017-09-10] MEDS ORDERED: dexamethasone sod phosphate 10mg/ml inj IV STA (06:22)
[2017-09-10] MEDS ORDERED: albuterol 2.5 MG/3 ML nebule CONTNEB PRN (06:25)
[2017-09-10 06:40] LABS: BASOPHILS % (AUTO) 0 % (0-1); EOSINOPHILS # (AUTO) 0.7 X10'3 (0-0.9); EOSINOPHILS % (AUTO) 3.5 % (0-6); HEMATOCRIT 34.6 % (35.0-45.0); HEMOGLOBIN 11.6 g/dl (12.0-16.0); LYMPHOCYTES # (AUTO) 0.9 X10'3 (1.1-4.8); LYMPHOCYTES % (AUTO) 4.7 % (21-51); MEAN CORPUSCULAR HEMOGLOBIN 25.7 PG (27.0-31.0); MEAN CORPUSCULAR HGB CONC 33.7 % (33.0-36.5); MEAN CORPUSCULAR VOLUME 76.2 FL (78-98); MEAN PLATELET VOLUME 8.6 FL (7.4-10.4); MONOCYTES # (AUTO) 0.1 X10'3 (0-0.9); MONOCYTES % (AUTO) 0.3 % (2-12); NEUTROPHILS # (AUTO) 17.8 X10'3 (1.8-7.7); NEUTROPHILS % (AUTO) 91.5 % (42-75); PLATELET COUNT 262 X10'3 (140-440); RED BLOOD COUNT 4.53 X10'6 (4.20-5.60); RED CELL DISTRIBUTION WIDTH 18.5 % (11.5-14.5); WHITE BLOOD COUNT 19.5 X10'3 (4.5-11.0)
[2017-09-10 06:54] LABS: ALANINE AMINOTRANSFERASE 28 U/L (12-78); ALBUMIN/GLOBULIN RATIO 0.9 (1.1-1.5); ALKALINE PHOSPHATASE 104 IU/L (46-116); ANION GAP 10 (8-16); ASPARTATE AMINO TRANSFERASE 21 U/L (10-37); BILIRUBIN,TOTAL 0.4 MG/DL (0.1-1.0); BLOOD UREA NITROGEN 21 MG/DL (7-18); BUN/CREATININE RATIO 14.1 (6.6-38.0); CALCIUM 8.9 MG/DL (8.5-10.1); CHLORIDE 103 MMOL/L (99-107); CREATININE 1.49 MG/DL (0.40-0.90); GLUCOSE 180 MG/DL (70-104); POTASSIUM 4.5 MMOL/L (3.5-5.1); SODIUM 135 MMOL/L (135-145); TOTAL CARBON DIOXIDE 21.7 MMOL/L (24-32); TOTAL PROTEIN 6.3 G/DL (6.4-8.2); eGFR 33 ML/MIN
[2017-09-10] MEDS ORDERED: etomidate 2mg/ml inj. ONE (07:00)
[2017-09-10] MEDS ORDERED: rocuronium 10mg/ml inj IV ONE (07:00)
[2017-09-10 07:11] LABS: PLATELET ESTIMATE NORMAL; TOTAL CELLS COUNTED 100
[2017-09-10 07:12] LABS: ACANTHOCYTES FEW; ANISOCYTOSIS 2+; BURR CELLS FEW; ELLIPTOCYTES FEW
[2017-09-10] MEDS ORDERED: LORazepam 2 mg/ml vial IV ONE (07:30)
[2017-09-10 07:41] LABS: ABG HCO3 19.1 mmol/L (22.0-26.0); ABG OXYGEN SATURATION 99.1 % (95-98); ABG PCO2 (T) 28.9 mmHg (32.0-45.0); ABG PH (T) 7.437 (7.350-7.450); ABG PO2 (T) 192.8 mmHg (83-108); ALLEN'S TEST Positive; FCOHb 0.5 % (0.5-1.5); FMetHb 0.2 % (0.3-1.12); FO2Hb 98.4 % (94-100); RESPIRATORY RATE 16 b/min; TOTAL HEMOGLOBIN 12.4 G/dl (12.0-16.0)
[2017-09-10] MEDS ORDERED: ASPI-41 PO (08:41)
[2017-09-10 09:21] LABS: ABG BASE EXCESS -3.7 mmol/L (-2.0-3.0); ABG HCO3 19.8 mmol/L (22.0-26.0); ABG OXYGEN SATURATION 96.3 % (95-98); ABG PCO2 (T) 31.1 mmHg (32.0-45.0); ABG PH (T) 7.422 (7.350-7.450); ABG PO2 (T) 79.4 mmHg (83-108); ALLEN'S TEST Positive; FCOHb 0.6 % (0.5-1.5); FMetHb 0.1 % (0.3-1.12); FO2Hb 95.6 % (94-100)
[2017-09-10] MEDS ORDERED: acetaminophen 325mg tablet PO ONE (09:30)
[2017-09-10] MEDS ORDERED: CefTRIAXone 2gm/D5W 50ml 50 ML IV ONE (09:30)
[2017-09-10] MEDS ORDERED: azithromycin 250mg tablet PO ONE (09:30)
[2017-09-10] MEDS ORDERED: MESSAGE TO PHARMACY PO ONE (10:00)
[2017-09-10] MEDS ORDERED: mag hydrox/Alum hydrox/simeth 30ml oral suspension PO PRN (10:00)
[2017-09-10] MEDS ORDERED: dextrose ORAL solution 15 GM/59 ML bottle PO PRN ×2 (10:00)
[2017-09-10] MEDS ORDERED: magnesium 1gm/100ml D5W IVPB 100 ML IV PRN (10:00)
[2017-09-10] MEDS ORDERED: magnesium hydroxide 30ml (MOM) UD suspension PO PRN (10:00)
[2017-09-10] MEDS ORDERED: dextrose 50%-water 50ml dispensing syringe IV PRN ×2 (10:00)
[2017-09-10] MEDS ORDERED: HYDROcodone/acetaminophen 5mg/325mg tablet PO PRN (10:00)
[2017-09-10] MEDS ORDERED: levoFLOXACIN 750MG TABLET PO SCH (10:00)
[2017-09-10] MEDS ORDERED: acetaminophen 325mg tablet PO PRN (10:00)
[2017-09-10] MEDS ORDERED: magnesium 4gm in 100ml NS 100 ML IV PRN (10:00)
[2017-09-10] MEDS ORDERED: ondansetron/PF 4mg/2ml inj IV PRN (10:00)
[2017-09-10] MEDS ORDERED: methylPREDNISolone sod succ/PF 40mg inj. IV ONE (10:00)
[2017-09-10] MEDS ORDERED: potassium Cl 20 mEq SR tablet PO PRN ×2 (10:00)
[2017-09-10] MEDS ORDERED: potassium Cl 40MEQ/NS 500ml 500 ML IV PRN ×2 (10:00)
[2017-09-10] MEDS ORDERED: glucagon, human recombinant 1mg kit SUBCUT PRN (10:00)
[2017-09-10] MEDS: insulin Lispro (HumaLOG) vial - multi-dose SQ SCH ×3 (14:37→22:32)
[2017-09-10] MEDS: ipratropium/albuterol 3ml nebule IH SCH ×2 (14:38→19:44)
[2017-09-10 17:36] VITALS: BP 145/70
[2017-09-10 18:00] VITALS: BP 118/56
[2017-09-10] MEDS: insulin glargine (Lantus) pen - multi-dose SQ SCH (21:00)
[2017-09-10 22:00] VITALS: BP 112/44
[2017-09-10] MEDS: LORazepam 1 MG tablet PO SCH (22:34)
[2017-09-11] MEDS: ipratropium/albuterol 3ml nebule IH SCH ×5 (02:00→20:13)
[2017-09-11 05:00] VITALS: BP 151/59
[2017-09-11] MEDS: K and/or MAG REPLACEMENT MC SCH (08:00)
[2017-09-11 08:22] LABS: BASOPHILS % (AUTO) 0 % (0-1); EOSINOPHILS % (AUTO) 0 % (0-6); HEMATOCRIT 29.8 % (35.0-45.0); LYMPHOCYTES # (AUTO) 0.8 X10'3 (1.1-4.8); LYMPHOCYTES % (AUTO) 5.1 % (21-51); MEAN CORPUSCULAR HEMOGLOBIN 25.8 PG (27.0-31.0); MEAN CORPUSCULAR HGB CONC 33.6 % (33.0-36.5); MEAN CORPUSCULAR VOLUME 76.6 FL (78-98); MEAN PLATELET VOLUME 9.3 FL (7.4-10.4); MONOCYTES # (AUTO) 1.2 X10'3 (0-0.9); MONOCYTES % (AUTO) 7.1 % (2-12); NEUTROPHILS # (AUTO) 14.7 X10'3 (1.8-7.7); NEUTROPHILS % (AUTO) 87.8 % (42-75); PLATELET COUNT 224 X10'3 (140-440); RED BLOOD COUNT 3.88 X10'6 (4.20-5.60); WHITE BLOOD COUNT 16.7 X10'3 (4.5-11.0)
[2017-09-11] MEDS: CefTRIAXone/D5W-Rocephin 1gm 50 ML IV SCH (08:46)
[2017-09-11] MEDS: aspirin 325mg tablet, delayed-release (Ecotrin) PO SCH (08:49)
[2017-09-11] MEDS: atorvastatin 20mg tablet PO SCH (08:50)
[2017-09-11] MEDS: lisinopril 10 MG tablet PO SCH (08:51)
[2017-09-11 09:02] LABS: ACANTHOCYTES 1+; ANISOCYTOSIS 2+; ELLIPTOCYTES 1+; HYPOCHROMASIA 1+; MICROCYTOSIS 1+; PLATELET ESTIMATE NORMAL
[2017-09-11] MEDS: insulin Lispro (HumaLOG) vial - multi-dose SQ SCH ×2 (09:08→19:46)
[2017-09-11 09:26] LABS: ALANINE AMINOTRANSFERASE 23 U/L (12-78); ALBUMIN 2.6 G/DL (3.4-5.0); ALBUMIN/GLOBULIN RATIO 0.8 (1.1-1.5); ALKALINE PHOSPHATASE 82 IU/L (46-116); ANION GAP 11 (8-16); ASPARTATE AMINO TRANSFERASE 21 U/L (10-37); BILIRUBIN,TOTAL 0.2 MG/DL (0.1-1.0); BLOOD UREA NITROGEN 30 MG/DL (7-18); BUN/CREATININE RATIO 18.9 (6.6-38.0); CALCIUM 8.7 MG/DL (8.5-10.1); CHLORIDE 107 MMOL/L (99-107); CHOL/HDL RATIO 1.6 (0.00-4.99); CHOLESTEROL 137 MG/DL (0-200); CREATININE 1.59 MG/DL (0.40-0.90); GLUCOSE 174 MG/DL (70-104); HDL CHOLESTEROL 84 MG/DL (35-60); LDL CHOLESTEROL 45 MG/DL (50-100); POTASSIUM 4.6 MMOL/L (3.5-5.1); SODIUM 141 MMOL/L (135-145); TOTAL CARBON DIOXIDE 23.4 MMOL/L (24-32); TOTAL PROTEIN 5.9 G/DL (6.4-8.2); TRIGLYCERIDES 45 MG/DL (20-135); eGFR 31 ML/MIN
[2017-09-11] MEDS: levoTHYROXINE 25mcg tablet PO SCH (12:01)
[2017-09-11 18:00] VITALS: BP 137/69
[2017-09-11] MEDS: insulin glargine (Lantus) pen - multi-dose SQ SCH (21:00)
[2017-09-11 22:00] VITALS: BP 166/61
[2017-09-11] MEDS: lactobacillus rhamnosus 10,000 MMU CELLS/CAPSULE PO SCH (22:09)
[2017-09-11] MEDS: LORazepam 1 MG tablet PO SCH (22:10)
[2017-09-11 22:37] LABS: CLARITY,URINE CLEAR (Clear); COLOR,URINE YELLOW (Yellow); GLUCOSE, URINE 100 mg/dl (Neg); KETONES,URINE NEGATIVE (Neg); LEUKOCYTE ESTERASE ,URINE NEGATIVE (Neg); NITRITES, URINE NEGATIVE (Neg); OCCULT BLOOD,URINE NEGATIVE (Neg); PH,URINE 5.5 (4.8-8.0); PROTEIN,URINE NEGATIVE (Neg); UROBILINOGEN,URINE 0.2 E.U/dL (0.2-1.0)
[2017-09-11 22:46] LABS: UA COLLECTION TYPE NON-SPECIFIED
[2017-09-12] MEDS: ipratropium/albuterol 3ml nebule IH SCH ×2 (02:00→09:05)
[2017-09-12 06:00] VITALS: BP 170/74
[2017-09-12] MEDS ORDERED: nateglinide 60mg tablet PO SCH (07:00)
[2017-09-12] MEDS: levoTHYROXINE 25mcg tablet PO SCH (07:31)
[2017-09-12] MEDS: lactobacillus rhamnosus 10,000 MMU CELLS/CAPSULE PO SCH (07:31)
[2017-09-12] MEDS: lisinopril 10 MG tablet PO SCH (07:32)
[2017-09-12] MEDS: aspirin 325mg tablet, delayed-release (Ecotrin) PO SCH (07:32)
[2017-09-12] MEDS: CefTRIAXone/D5W-Rocephin 1gm 50 ML IV SCH (07:32)
[2017-09-12] MEDS: atorvastatin 20mg tablet PO SCH (07:32)
[2017-09-12 08:00] LABS: BASOPHILS % (AUTO) 0.3 % (0-1); EOSINOPHILS # (AUTO) 0.4 X10'3 (0-0.9); EOSINOPHILS % (AUTO) 4.5 % (0-6); HEMATOCRIT 29.6 % (35.0-45.0); LYMPHOCYTES # (AUTO) 1.5 X10'3 (1.1-4.8); LYMPHOCYTES % (AUTO) 16.6 % (21-51); MEAN CORPUSCULAR HEMOGLOBIN 25.7 PG (27.0-31.0); MEAN CORPUSCULAR HGB CONC 33.9 % (33.0-36.5); MEAN CORPUSCULAR VOLUME 75.7 FL (78-98); MONOCYTES % (AUTO) 11.2 % (2-12); NEUTROPHILS # (AUTO) 6.1 X10'3 (1.8-7.7); NEUTROPHILS % (AUTO) 67.4 % (42-75); PLATELET COUNT 231 X10'3 (140-440); RED BLOOD COUNT 3.91 X10'6 (4.20-5.60); RED CELL DISTRIBUTION WIDTH 18.5 % (11.5-14.5)
[2017-09-12] MEDS: K and/or MAG REPLACEMENT MC SCH (08:00)
[2017-09-12 08:22] LABS: ALANINE AMINOTRANSFERASE 25 U/L (12-78); ALBUMIN 2.6 G/DL (3.4-5.0); ALBUMIN/GLOBULIN RATIO 0.8 (1.1-1.5); ALKALINE PHOSPHATASE 73 IU/L (46-116); ANION GAP 9 (8-16); ASPARTATE AMINO TRANSFERASE 19 U/L (10-37); BILIRUBIN,TOTAL 0.2 MG/DL (0.1-1.0); BLOOD UREA NITROGEN 32 MG/DL (7-18); BUN/CREATININE RATIO 19.8 (6.6-38.0); CALCIUM 9.1 MG/DL (8.5-10.1); CHLORIDE 109 MMOL/L (99-107); CREATININE 1.62 MG/DL (0.40-0.90); GLUCOSE 107 MG/DL (70-104); MAGNESIUM 2.1 MG/DL (1.5-2.4); SODIUM 141 MMOL/L (135-145); TOTAL CARBON DIOXIDE 23.2 MMOL/L (24-32); TOTAL PROTEIN 5.7 G/DL (6.4-8.2); eGFR 30 ML/MIN
[2017-09-12 08:51] LABS: ANISOCYTOSIS 2+; ELLIPTOCYTES FEW; MICROCYTOSIS 1+; PLATELET ESTIMATE NORMAL; SCHISTOCYTES FEW
[2017-09-12 10:00] VITALS: BP 142/54
[2017-09-12] MEDS ORDERED: levoFLOXACIN 500mg tablet PO SCH (11:00)
[2017-09-12] MEDS ORDERED: LEVO500T89 PO (11:30)
== END 2017-09-12 13:45 | disposition home health service (06) | DRG 872 ==
LOC: ER 06:13 → ED HOLD 09:59 → ORTHO 4S 11:10
PROVIDERS: ADMIT Family Medicine; ATTEND Family Medicine
PROC: 5A09357 Assistance with Respiratory Ventilation, Less than 24 Consecutive Hours, Continuous Positive Airway Pressure (ICD-10-PCS; principal; 2017-09-10)
PROC: CB221ZZ Tomographic (Tomo) Nuclear Medicine Imaging of Lungs and Bronchi using Technetium 99m (Tc-99m) (ICD-10-PCS; 2017-09-10)
DX: A41.9 Sepsis, unspecified organism (principal); I13.0 Hypertensive heart and chronic kidney disease with heart failure and stage 1 through stage 4 chronic kidney disease, or unspecified chronic kidney disease; E87.2 Acidosis; E87.3 Alkalosis; E03.9 Hypothyroidism, unspecified; R09.02 Hypoxemia; N18.9 Chronic kidney disease, unspecified; E78.00 Pure hypercholesterolemia, unspecified; E11.65 Type 2 diabetes mellitus with hyperglycemia; E11.22 Type 2 diabetes mellitus with diabetic chronic kidney disease; F03.90 Unspecified dementia, unspecified severity, without behavioral disturbance, psychotic disturbance, mood disturbance, and anxiety; I50.9 Heart failure, unspecified; J45.909 Unspecified asthma, uncomplicated; Z79.899 Other long term (current) drug therapy; Z79.82 Long term (current) use of aspirin; Z86.73 Personal history of transient ischemic attack (TIA), and cerebral infarction without residual deficits; Z87.440 Personal history of urinary (tract) infections
CPT/HCPCS: 36415; 36600; 70551; 71045; 78582; 80053; 80061; 81003; 82803; 82948; 83036; 83605; 83735; 83880; 84145; 84439; 84443; 84484; 85018; 85025; 87040; 87070; 92616; 93005; 94640; 94660; 94760; 97116; 97162; 97530; A4353; A9539; A9540; J0696; J1100; J1815; J2060; J2920; J3490; J7030